=== PATIENT | male | born 1985 | race Caucasian/White ===

== ENCOUNTER 2017-12-31 17:21 | Emergency (ER) | payer SELFPAY ==
[2017-12-31 17:22] VITALS: BP 128/77; PULSE 86; RESP 15; TEMP 36.4; O2SAT 98; BMI 35.2
--- NOTE | 2017-12-31 17:40 | RAD_ITS ---
STUDY: X-RAY - RIGHT HAND, ATTENTION FOURTH FINGER REASON FOR EXAM: Male, 32 years old. Laceration TECHNIQUE: Three view(s) of the finger were obtained. COMPARISON: None. FINDINGS: Bones: There is cortical disruption in the tuft of the fourth finger. Joints: The visualized joints are unremarkable. Soft tissues: There is a soft tissue defect in the distal fourth finger. There is soft tissue swelling in the fourth finger. Foreign body: None RAD/Finger(s) Min 2 Views IMPRESSION: There is osseous involvement in the tuft of the fourth finger. No radiopaque foreign bodies are seen. Electronically Signed: Debby Franco MD at 18:09 EST Tel Direct: [phone], Service support ,
--- NOTE | 2017-12-31 18:27 | ED.VISSUMM ---
- ER Visit Summary Date of Service: 12/31/17 Chief Complaint: [Injury right ring finger] History of Present Illness: The patient is a 32 M [presents the emergency department with an injury to his right ring finger that occurred about an hour ago prior to coming into the emergency department. Patient was using some sort of a router cutter when he injured the tip of his right ring finger. Patient is right-hand dominant. Patient unsure of his last tetanus. Patient does not want to file this under workman's comp.] Physical Examination: [Right ring finger-there is a soft tissue avulsion with significant tissue loss to the tip of the ring finger pulp. The wound does not involve the nail or nail bed. I am able to palpate exposed distal phalanx in the wound. Patient has normal range of motion at the PIP and DIP joints.] Test Results: [X-rays of the right ring finger showed involvement/avulsion of the distal tip of the distal phalanx.] Emergency Department Course and Treatment: [Laceration repair. Wound sterilely draped and prepped. Using 1% lidocaine a digital block was performed with 8 cc of 1% lidocaine with good anesthesia. Using sterile rubber bands I was able to obtain good hemostasis. The wound was cleansed with copious saline and irrigated. Wound was cleansed with Shur-Clens. Using 5-0 nylon a total of 4 single interrupted sutures were used to approximate the surrounding tissue to close the hole in the pulp of the digit. Patient tolerated procedure well. Patient was given Ancef 1 g IV and Adacel tetanus booster.] Treatment Plan: [Patient case was discussed with Dr. Barrera and in the office tomorrow. Patient will be given a prescription for Percocet and Keflex.] Disposition: [Discharged to home in stable condition] Impression: [Avulsion distal tip right ring finger with open distal phalanx fracture] This note was generated with [employer] dictation software. It may contain incorrect words, spelling, and punctuation that were not noted in review of the chart prior to signing ED Disposition - Plan for ED Patient: Chief Complaint: Laceration Referrals: Care Physician,No Primary [Primary Care Provider] -
--- NOTE | 2017-12-31 18:37 | ED.DEP ---
ED Disposition - Plan for ED Patient: Chief Complaint: Laceration Instructions: ED Laceration Hand, ED Fx Finger Open Prescriptions: Oxycodone HCl/Acetaminophen [Percocet 5/325] 1 tab PO Q6H PRN PRN 5 Days #20 tab PRN Reason: Pain Cephalexin [Keflex] 500 mg PO Q6 #40 cap Referrals: Care Physician,No Primary [Primary Care Provider] - River Barrera MD [STAFF PHYSICIAN] -
[2017-12-31] MEDS: Cefazolin 1 GM/50 ML BAG IV (18:50)
[2017-12-31] MEDS: Diphth,Pertuss(Acell),Tet Vac 0.5 ML Vial IM (18:56)
[2017-12-31 19:05] VITALS: BP 131/70; PULSE 70; RESP 14; O2SAT 99
== END 2017-12-31 19:16 | disposition home or self-care (01) ==
LOC: ED 17:46
PROVIDERS: Emergency Provider Emergency Medicine
DX: S62.634B Displaced fracture of distal phalanx of right ring finger, initial encounter for open fracture (principal); S61.214A Laceration without foreign body of right ring finger without damage to nail, initial encounter; W26.8XXA Contact with other sharp object(s), not elsewhere classified, initial encounter; Y93.9 Activity, unspecified; Y92.9 Unspecified place or not applicable
CPT/HCPCS: 12001; 73140; 90471; 90715; 96365; 99283; J7050; A4216